=== PATIENT | male | born 1960 | race Two or more races ===

== ENCOUNTER 2021-02-04 20:50 | Emergency (ER) | payer OTHER ==
[~2021-02-04] VITALS: Ht 175.3 cm; Wt 90.0 kg
[2021-02-04] MEDS ORDERED: ASPIRIN 325MG EC TABLET PO ONE (21:45)
[2021-02-04] MEDS ORDERED: DEXT 5%/0.9% NACL 1,000 ML IV ONE (21:45)
[2021-02-04 22:47] LABS: BASOPHILS % 0.2 % (0.0-2.0); HEMATOCRIT. 39.1 % (42.0-52.0); HEMOGLOBIN. 13.2 g/dL (14.0-18.0); LYMPHOCYTES % 7.1 % (20.0-50.0); MEAN CORPUSCULAR HEMOGLOBIN 30.5 pg (28.0-32.0); MEAN CORPUSCULAR VOLUME 90.4 fL (80.0-94.0); MEAN PLATELET VOLUME 9.1 fl (7.4-10.4); MONOCYTES % 10.4 % (2.0-8.0); NEUTROPHILS % 82.3 % (40.0-76.0); PLATELET 274 x1000/uL (130-400); RED BLOOD CELL COUNT 4.32 mill/uL (4.7-6.1); RED CELL DISTRIBUTION WIDTH 13.5 % (11.6-14.6)
[2021-02-04 22:55] LABS: CHLORIDE 104 mEq/L (98-107)
[2021-02-05] MEDS ORDERED: CLONIDINE 0.1MG TABLET PO PRN (09:15)
[2021-02-05] MEDS ORDERED: ACETAMINOPHEN 325MG TABLET PO PRN (09:15)
[2021-02-05] MEDS ORDERED: IPRATROPIUM/ALBUTEROL 0.5-3(2.5)MG/3ML NEB HHN PRN (09:15)
[2021-02-05] MEDS ORDERED: DIPHENHYDRAMINE 50MG/ML VIAL IV PRN (09:15)
[2021-02-05] MEDS ORDERED: ONDANSETRON HCL 4MG/2ML INJ IV PRN (09:15)
[2021-02-05] MEDS ORDERED: ENOXAPARIN 40MG/0.4ML SYR SUBCUT SCH (10:00)
[2021-02-05 10:25] VITALS: BP 136/80
== END 2021-02-05 10:42 | disposition short-term general hospital (02) ==
LOC: ER 20:50 → UNDOADMIN 22:58 → MICUSO 22:58 → ER 02-05 10:42
DX: U07.1 COVID-19 (principal); E86.0 Dehydration
CPT/HCPCS: 36415; 71045; 80053; 83880; 84484; 85025; 93005; 96360; 99285; C9803; J7042; U0003; U0005